=== PATIENT | male | born 1985 ===

== ENCOUNTER 2022-06-17 23:50 | Outpatient (REF) | payer MEDICARE, MEDICAID, SELFPAY ==
[2022-06-18 01:43] LABS: HCT 51.1 % (40.0-50.0); HGB 16.8 g/dL (13.5-17.5); MCH 29.2 pg (27.0-33.0); MCHC 32.9 % (32.0-36.0); MCV 89 fL (80-95); MPV 11.1 fL (8.0-11.0); Platelet Count 302 10^3/uL (130-400); RBC 5.75 10^6/uL (4.36-5.78); RDW 12.8 % (11.8-14.1); RDW-SD 41.5 fL; WBC 8.45 10^3/uL (4.4-10.8)
[2022-06-18 02:00] LABS: ALT 29 U/L (16-63); AST 19 U/L (15-37); Alkaline Phosphatase 90 U/L (46-116); Anion Gap 9.4 mmol/L (3-11); BUN 14 mg/dL (7-18); Bilirubin, Total 0.3 mg/dL (0.2-1.0); CO2 28.6 mmol/L (21.0-32.0); Calcium 9.3 mg/dL (8.5-10.1); Calculated LDL 111 mg/dL (<100); Chloride 100 mmol/L (98-107); Cholesterol 206 mg/dL (<200); Glucose 90 mg/dL (74-106); HDL Cholesterol 41 mg/dL (40-60); Potassium 4.2 mmol/L (3.5-5.1); Sodium 138 mmol/L (136-145); Total Protein 7.7 g/dL (6.4-8.2); Triglyceride 272 mg/dL (<150)
== END 2022-06-17 23:51 | disposition home or self-care (01) ==
LOC: LBN 23:50
PROVIDERS: Visit Provider Family Medicine
DX: Z13.220 Encounter for screening for lipoid disorders (principal); Z00.00 Encounter for general adult medical examination without abnormal findings
CPT/HCPCS: 80053; 80061; 85027

== ENCOUNTER 2024-08-31 18:56 | Outpatient (REF) | payer MEDICARE, SELFPAY ==
[2024-08-31 21:31] LABS: ALT 22 U/L (16-63); AST 24 U/L (15-37); Alkaline Phosphatase 88 U/L (46-116); Anion Gap 7.3 mmol/L (3-11); BUN 12 mg/dL (7-18); Bilirubin, Total 0.38 mg/dL (0.2-1.0); CO2 29.7 mmol/L (21.0-32.0); CREATININE 1.3 mg/dL (0.70-1.30); Calcium 9.4 mg/dL (8.5-10.1); Calculated LDL 106 mg/dL (<100); Chloride 106 mmol/L (98-107); Cholesterol 181 mg/dL (<200); Estimated GFR 71.22 (mL/min/1.73m2); Glucose 105 mg/dL (74-106); HDL Cholesterol 51 mg/dL (40-60); Potassium 4.3 mmol/L (3.5-5.1); Sodium 143 mmol/L (136-145); Total Protein 7.4 g/dL (6.4-8.2); Triglyceride 123 mg/dL (<150)
[2024-08-31 22:02] LABS: Hemoglobin A1C 5.4 % (<5.7)
== END 2024-08-31 18:57 | disposition home or self-care (01) ==
LOC: NCHCN 18:56
PROVIDERS: Visit Provider Family Medicine
DX: E66.3 Overweight (principal)
CPT/HCPCS: 80053; 80061; 83036